=== PATIENT | male | born 1950 | race Caucasian/White ===

== ENCOUNTER → 2020-05-23 10:41 | Outpatient (BNVA) | payer MEDICARE, SELFPAY | PROVIDERS: PCP Internal Medicine; Visit Provider Internal Medicine | DX: J44.9 Chronic obstructive pulmonary disease, unspecified (principal); Z79.899 Other long term (current) drug therapy | CPT/HCPCS: 99212 ==

== ENCOUNTER → 2020-12-27 08:59 | Outpatient (BNVA) | payer MEDICARE, SELFPAY | PROVIDERS: PCP Internal Medicine; Visit Provider Internal Medicine | DX: J44.9 Chronic obstructive pulmonary disease, unspecified (principal); Z79.899 Other long term (current) drug therapy | CPT/HCPCS: 99212 ==

== ENCOUNTER → 2021-06-28 09:39 | Outpatient (BNVA) | payer MEDICARE, SELFPAY | PROVIDERS: PCP Internal Medicine; Visit Provider Internal Medicine | DX: J44.9 Chronic obstructive pulmonary disease, unspecified (principal); J45.909 Unspecified asthma, uncomplicated | CPT/HCPCS: 99212 ==

== ENCOUNTER → 2021-07-27 13:11 | Outpatient (BNVA) | payer MEDICARE, SELFPAY | PROVIDERS: PCP Internal Medicine; Visit Provider Internal Medicine Pulmonary Disease | DX: J45.901 Unspecified asthma with (acute) exacerbation (principal) | CPT/HCPCS: Q3014 ==

== ENCOUNTER → 2021-11-27 09:06 | Outpatient (BNVA) | payer MEDICARE, SELFPAY | PROVIDERS: PCP Internal Medicine; Visit Provider Internal Medicine | DX: J44.9 Chronic obstructive pulmonary disease, unspecified (principal); J30.9 Allergic rhinitis, unspecified; Z79.899 Other long term (current) drug therapy | CPT/HCPCS: 99212 ==

== ENCOUNTER → 2022-05-30 09:57 | Outpatient (BNVA) | payer MEDICARE, SELFPAY | PROVIDERS: PCP Internal Medicine; Visit Provider Internal Medicine | DX: J45.909 Unspecified asthma, uncomplicated (principal); J44.9 Chronic obstructive pulmonary disease, unspecified | CPT/HCPCS: 99212 ==

== ENCOUNTER → 2022-11-26 09:26 | Outpatient (BNVA) | payer MEDICARE, SELFPAY | PROVIDERS: PCP Internal Medicine; Visit Provider Internal Medicine | DX: J44.9 Chronic obstructive pulmonary disease, unspecified (principal); J45.909 Unspecified asthma, uncomplicated; J30.9 Allergic rhinitis, unspecified; Z79.899 Other long term (current) drug therapy | CPT/HCPCS: 94010; 99212 ==

== ENCOUNTER 2023-06-10 10:23 | Outpatient (AMB) | payer MEDICARE, SELFPAY ==
--- NOTE | 2023-06-10 10:37 | A.OFFVIS_ITS ---
Intake Vital Signs 06/10/23 10:39 Height 5 ft 4 in Weight 143 lb 4.807 oz BMI 24.6 BP 130/70 Blood Pressure Location Lt brachial Position Sitting Pulse 56 Pulse Source Pulse Oximeter Pulse Oximetry (%) 97 Oxygen Delivery Method Room Air Intake Visit Reasons: copd Intake Note: Pt reports a little wheezing and is coughing up yellow mucus but says it is typical for him in the winter. He is looking for a prescription refill for the montelukast and albuterol inhaler. [employer] Required: No Allergies peanut [PEANUT] Allergy (Severe, Verified 06/10/23 10:55) ANAPHYLAXIS Medication List - Last Reconciled 06/10/23 by Viviane Abbasi MD albuterol sulfate 90 mcg/actuation 2 puffs inhalation Q4-6H PRN NS amlodipine 5 mg PO DAILY atorvastatin 10 mg PO DAILY cholecalciferol (vitamin D3) 25 mcg PO DAILY hydrocortisone 2.5% topical BID montelukast 10 mg PO BEDTIME omeprazole 40 mg PO DAILY peak flow meter As directed tamsulosin 0.4 mg PO DAILY Wixela Inhub 250-50 mcg/dose (fluticasone propion-salmeterol) 1 ea PO BID NS Do you need a note to return to daycare/school/sports/work: No HPI copd HPI Details CALI IS 73 YEARS OLD GENTLEMAN AND IS HERE AFTER 6 MONTHS FOR FOLLOW- UP. MAIN PROBLEMS INCLUDE CHRONIC ALLERGIC RHINITIS AND CHRONIC OBSTRUCTIVE PULMONARY DISEASE. HE IS DOING VERY WELL ON HIS CURRENT REGIMEN. HE DOES HAVE INTERMITTENT INCREASE IN NASAL CONGESTION AND CHEST CONGESTION BUT HAS HAD NO PNEUMONIA ARE ANY PERSISTENCE OF SYMPTOMS. HE REMAINS PHYSICALLY ACTIVE AND TELLS ME THAT HE ACTUALLY PLAYS PICKLEBALL A FEW TIMES A WEEK. [facility] Medical History (Updated 06/10/23 @ 10:58 by Viviane Abbasi MD) Asthma-COPD overlap syndrome Allergic rhinitis Bronchial asthma COPD (chronic obstructive pulmonary disease) Social History Patient Tobacco Use Status: Never used Tobacco Review of Systems Const All systems reviewed & are unremarkable except as noted in HPI and below Eyes Reports no additional complaints ENT Reports nasal congestion (Mild intermittent) Card Reports no additional complaints Resp Reports as per HPI GI Reports heartburn (Occasional heartburn controlled with med) Reports no additional complaints Musc Reports no additional complaints Skin/Breast Reports system reviewed and no additional complaints, except as documented Neuro Reports no additional complaints Physical Exam Vital Signs: Last Vital Signs Pulse 56 06/10/23 10:39 BP 130/70 06/10/23 10:39 Pulse Ox 97 06/10/23 10:39 Oxygen Delivery Method Room Air 06/10/23 10:39 BMI result Body Mass Index 24.6 Const General: healthy appearing, comfortable, no acute distress, alert and awake Orientation/consciousness: patient oriented x3 HEENT Head: Yes normal to inspection General nose exam: No nasal polyps present and No nasal discharge present Face and sinus: Yes sinuses nontender Mouth: oropharynx normal Throat: Yes posterior oropharynx normal Eyes General: appearance normal, both eyes and all related structures Neck Neck: Yes normal visual inspection, Yes no lymphadenopathy, Yes trachea midline and Yes no JVD Thyroid: Thyroid normal Chest Chest palpation & inspection: normal inspection of the chest, normal palpation of entire chest wall and no tenderness Resp Other: Percussion note resonant, breath sounds are equal and normal on both sides. No wheezes ,Creps or rhonchi are heard . Cardio Palpation: normal PMI Rate: regular rate Rhythm: regular rhythm Heart sounds: no gallops and no murmurs Peripheral pulses: Peripheral pulses 2+ throughout GI Palpation (GI): Soft to palpation, nontender, No hepatosplenomegaly present and no masses Auscultation: normal bowel sounds Back/Spine/Pelvis Thoracic/Lumbar Spine: thoracic and lumbar spine normal to inspection Skin General skin exam: no rashes or lesions noted Neuro General: patient oriented x3 and no focal motor deficits Cranial nerves: Yes CN's II-XII intact bilaterally Extrem General: Yes normal to inspection, Yes no clubbing, cyanosis or edema and Yes no calf tenderness Psych Appearance: grossly normal and well kempt Speech and movement: Normal speech and movement present Assessment & Plan Assessment & Plan (1) Asthma-COPD overlap syndrome: Comment: HE HAS LIFELONG HISTORY OF BRONCHIAL ASTHMA WHICH HAS NOW CHANGED INTO ASTHMA COPD OVERLAP SYNDROME. HE IS REMAINING VERY STABLE ON HIS CURRENT REGIMEN. Code(s): J44.89 - Other specified chronic obstructive pulmonary disease Plan: WIXELA 250-51 INHALATION B.I.D.. MONTELUKAST 10 MG DAILY. ALBUTEROL HFA 2 PUFFS Q 6 HOURS ONLY P.R.N. (2) Allergic rhinitis: Comment: Well controlled at this time [place]: Montelukast 10 mg daily Claritin 10 mg 1 a day only p.r.n. Code(s): J30.9 - Allergic rhinitis, unspecified Plan: ABOVE Medications: Changed From montelukast 10 mg PO BEDTIME 90 tabs 1RF J30.9 - Allergic rhinitis, unspecified To montelukast 10 mg PO BEDTIME 90 tabs 3RF ASTHMA/ALLERGIC RHINITIS 90 days J30.9 - Allergic rhinitis, unspecified Refilled albuterol sulfate 90 mcg/actuation 2 puffs inhalation Q4-6H PRN 1 ea 3RF shor tness of breath or wheezing NS Coding Level of Care Code Est Pt Level 3 (84656) Diagnoses Asthma-COPD overlap syndrome J44.89 Allergic rhinitis J30.9
[2023-06-10 10:39] VITALS: BP 130/70; PULSE 56; O2SAT 97; BMI 24.6
== END 2023-06-10 11:02 | disposition home or self-care (01) ==
PROVIDERS: PCP Internal Medicine; Visit Provider Internal Medicine
DX: J44.89 Other specified chronic obstructive pulmonary disease (principal); J30.9 Allergic rhinitis, unspecified
CPT/HCPCS: 99213

== ENCOUNTER → 2023-06-10 10:23 | Outpatient (BNVA) | payer MEDICARE, SELFPAY | PROVIDERS: PCP Internal Medicine; Visit Provider Internal Medicine | DX: J44.89 Other specified chronic obstructive pulmonary disease (principal); J30.9 Allergic rhinitis, unspecified | CPT/HCPCS: 99212 ==

== ENCOUNTER 2023-12-09 09:21 | Outpatient (AMB) | payer MEDICARE, SELFPAY ==
--- NOTE | 2023-12-09 09:24 | A.OFFVIS_ITS ---
Vital Signs 12/09/23 09:25 Weight 144 lb 6.444 oz BP 130/70 Blood Pressure Location Lt brachial Position Sitting Pulse 63 Pulse Source Pulse Oximeter Pulse Oximetry (%) 96 Oxygen Delivery Method Room Air Intake Visit Reasons: copd Allergies peanut [PEANUT] Allergy (Severe, Verified 12/09/23 09:31) ANAPHYLAXIS Medication List - Last Reconciled 12/09/23 by Viviane Abbasi MD albuterol sulfate 90 mcg/actuation 2 puffs inhalation Q4-6H PRN NS amlodipine 5 mg PO DAILY atorvastatin 10 mg PO DAILY cholecalciferol (vitamin D3) 25 mcg PO DAILY famotidine 40 mg PO DAILY hydrocortisone 2.5% topical BID montelukast 10 mg PO BEDTIME 90 days omeprazole 40 mg PO DAILY peak flow meter As directed tamsulosin 0.4 mg PO DAILY Wixela Inhub 250-50 mcg/dose (fluticasone propion-salmeterol) 1 ea PO BID NS Do you need a note to return to daycare/school/sports/work: No HPI HPI copd: Details: Sahil is now 73 comes after 6 months for his routine follow-up. His breathing status has remained very stable though he gets short of breath on moderately heavy physical work. He has had no bouts of nasal allergy, or any respiratory infection. Sahil stays very active, plays pickleball regularly. Taking his meds regularly. [facility] Medical History Asthma-COPD overlap syndrome Allergic rhinitis Bronchial asthma COPD (chronic obstructive pulmonary disease) Social History Patient Tobacco Use Status: Never used Tobacco Review of Systems Const All systems reviewed & are unremarkable except as noted in HPI and below Eyes Reports no additional complaints ENT Reports nasal congestion (Mild intermittent) Card Reports no additional complaints Resp Reports as per HPI GI Reports heartburn (Occasional heartburn controlled with med) Reports no additional complaints Musc Reports no additional complaints Skin/Breast Reports system reviewed and no additional complaints, except as documented Neuro Reports no additional complaints Physical Exam Vital Signs: Last Vital Signs Pulse 63 12/09/23 09:25 BP 130/70 12/09/23 09:25 Pulse Ox 96 12/09/23 09:25 Oxygen Delivery Method Room Air 12/09/23 09:25 Const General: healthy appearing, comfortable, no acute distress, alert and awake Orientation/consciousness: patient oriented x3 HEENT Head: Yes normal to inspection General nose exam: No nasal polyps present and No nasal discharge present Face and sinus: Yes sinuses nontender Mouth: oropharynx normal Throat: Yes posterior oropharynx normal Eyes General: appearance normal, both eyes and all related structures Neck Neck: Yes normal visual inspection, Yes no lymphadenopathy, Yes trachea midline and Yes no JVD Thyroid: Thyroid normal Chest Chest palpation & inspection: normal inspection of the chest, normal palpation of entire chest wall and no tenderness Resp Other: Percussion note resonant, breath sounds are equal and normal on both sides. No wheezes ,Creps or rhonchi are heard . Cardio Palpation: normal PMI Rate: regular rate Rhythm: regular rhythm Heart sounds: no gallops and no murmurs Peripheral pulses: Peripheral pulses 2+ throughout GI Palpation (GI): Soft to palpation, nontender, No hepatosplenomegaly present and no masses Auscultation: normal bowel sounds Back/Spine/Pelvis Thoracic/Lumbar Spine: thoracic and lumbar spine normal to inspection Skin General skin exam: no rashes or lesions noted Neuro General: patient oriented x3 and no focal motor deficits Cranial nerves: Yes CN's II-XII intact bilaterally Extrem General: Yes normal to inspection, Yes no clubbing, cyanosis or edema and Yes no calf tenderness Psych Appearance: grossly normal and well kempt Speech and movement: Normal speech and movement present Assessment & Plan Assessment & Plan (1) Asthma-COPD overlap syndrome: Comment: HE HAS LIFELONG HISTORY OF BRONCHIAL ASTHMA WHICH HAS NOW CHANGED INTO ASTHMA / COPD OVERLAP SYNDROME. HE IS REMAINING VERY STABLE ON HIS CURRENT REGIMEN. Code(s): J44.89 - Other specified chronic obstructive pulmonary disease Category: Medical Plan: Continue Wixela 250-51 inhalation b.i.d. and albuterol HFA 2 puffs Q 4-6 hours only p.r.n. (2) Allergic rhinitis: Comment: Well controlled at this time. He has had no acute exacerbation. Code(s): J30.9 - Allergic rhinitis, unspecified Category: Medical Plan: [place]: Montelukast 10 mg daily Claritin 10 mg 1 a day only p.r.n. Coding Level of Care Code Est Pt Level 3 (00352) Diagnoses Asthma-COPD overlap syndrome J44.89 Allergic rhinitis J30.9
[2023-12-09 09:25] VITALS: BP 130/70; PULSE 63; O2SAT 96
== END 2023-12-09 09:40 | disposition home or self-care (01) ==
PROVIDERS: PCP Internal Medicine; Visit Provider Internal Medicine
DX: J44.89 Other specified chronic obstructive pulmonary disease (principal); J30.9 Allergic rhinitis, unspecified
CPT/HCPCS: 99213

== ENCOUNTER → 2023-12-09 09:21 | Outpatient (BNVA) | payer MEDICARE, SELFPAY | PROVIDERS: PCP Internal Medicine; Visit Provider Internal Medicine | DX: J44.89 Other specified chronic obstructive pulmonary disease (principal); J30.9 Allergic rhinitis, unspecified; Z79.899 Other long term (current) drug therapy | CPT/HCPCS: 99212 ==

== ENCOUNTER 2024-06-14 09:16 | Outpatient (AMB) | payer MEDICARE, SELFPAY ==
[2024-06-14 09:21] VITALS: BP 112/70; PULSE 60; O2SAT 96; BMI 25.5
--- NOTE | 2024-06-14 09:21 | A.OFFVIS_ITS ---
Vital Signs 06/14/24 09:21 Height 5 ft 4 in Weight 148 lb 12.992 oz BMI 25.5 BP 112/70 Blood Pressure Location Lt brachial Position Sitting Pulse 60 Pulse Source Pulse Oximeter Pulse Oximetry (%) 96 Oxygen Delivery Method Room Air Intake Visit Reasons: COPD Intake Note: pt is here for follow up had URI after xmas and he has lingering mucous in chest. Pulmonary Function Technician Required: No Allergies peanut [PEANUT] Allergy (Severe, Verified 06/14/24 09:33) ANAPHYLAXIS Medication List - Last Reconciled 06/14/24 by Viviane Abbasi MD albuterol sulfate 90 mcg/actuation 2 puffs inhalation Q4-6H PRN NS amlodipine 5 mg PO DAILY atorvastatin 10 mg PO DAILY cholecalciferol (vitamin D3) 25 mcg PO DAILY famotidine 40 mg PO DAILY hydrocortisone 2.5% topical BID losartan 25 mg PO DAILY montelukast 10 mg PO BEDTIME 90 days omeprazole 40 mg PO DAILY peak flow meter As directed prednisone 20 mg PO BID 5 days tamsulosin 0.4 mg PO DAILY Wixela Inhub 250-50 mcg/dose (fluticasone propion-salmeterol) 1 ea PO BID NS Do you need a note to return to daycare/school/sports/work: No HPI HPI COPD: Details: Sahil has been fairly stable, overall except for intermittent bouts of increased chest congestion and cough. He has used a short course of prednisone once during the last 6 months, otherwise he is doing well on his ongoing maintenance regimen. He remains very active. Denies any shortness of breath on exertion. [facility] Medical History Asthma-COPD overlap syndrome Allergic rhinitis Bronchial asthma COPD (chronic obstructive pulmonary disease) Social History Patient Tobacco Use Status: Never used Tobacco Review of Systems Const All systems reviewed & are unremarkable except as noted in HPI and below Eyes Reports no additional complaints ENT Reports nasal congestion (Mild intermittent) Card Reports no additional complaints Resp Reports as per HPI GI Reports heartburn (Occasional heartburn controlled with med) Reports no additional complaints Musc Reports no additional complaints Skin/Breast Reports system reviewed and no additional complaints, except as documented Neuro Reports no additional complaints Physical Exam Vital Signs: Last Vital Signs Pulse 60 01/13/25 09:21 BP 112/70 06/14/24 09:21 Pulse Ox 96 06/14/24 09:21 Oxygen Delivery Method Room Air 06/14/24 09:21 BMI result Body Mass Index 25.5 Const General: healthy appearing, comfortable, no acute distress, alert and awake Orientation/consciousness: patient oriented x3 HEENT Head: Yes normal to inspection General nose exam: No nasal polyps present, No nasal discharge present and Other nasal findings present (Mild nasal congestion) Face and sinus: Yes sinuses nontender Mouth: oropharynx normal Throat: Yes posterior oropharynx normal Eyes General: appearance normal, both eyes and all related structures Neck Neck: Yes normal visual inspection, Yes no lymphadenopathy, Yes trachea midline and Yes no JVD Thyroid: Thyroid normal Chest Chest palpation & inspection: normal inspection of the chest, normal palpation of entire chest wall and no tenderness Resp Other: Percussion note resonant, breath sounds are equal and normal on both sides. No wheezes ,Creps or rhonchi are heard . Cardio Palpation: normal PMI Rate: regular rate Rhythm: regular rhythm Heart sounds: no gallops and no murmurs Peripheral pulses: Peripheral pulses 2+ throughout GI Palpation (GI): Soft to palpation, nontender, No hepatosplenomegaly present and no masses Auscultation: normal bowel sounds Back/Spine/Pelvis Thoracic/Lumbar Spine: thoracic and lumbar spine normal to inspection Skin General skin exam: no rashes or lesions noted Neuro General: patient oriented x3 and no focal motor deficits Cranial nerves: Yes CN's II-XII intact bilaterally Extrem General: Yes normal to inspection, Yes no clubbing, cyanosis or edema and Yes no calf tenderness Psych Appearance: grossly normal and well kempt Speech and movement: Normal speech and movement present Assessment & Plan Assessment & Plan (1) Asthma-COPD overlap syndrome: Comment: HE HAS LIFELONG HISTORY OF BRONCHIAL ASTHMA WHICH HAS NOW CHANGED INTO ASTHMA / COPD OVERLAP SYNDROME. HE IS REMAINING VERY STABLE ON HIS CURRENT REGIMEN. HAS INTERMITTENT BOUTS OF INCREASED NASAL CONGESTION WELL CHEST CONGESTION, WHICH MAY BE DUE TO CHANGES IN THE WEATHER. Code(s): J44.89 - Other specified chronic obstructive pulmonary disease Category: Medical Plan: CONTINUE MONTELUKAST 10 MG DAILY WIXELA 250-50 1 INHALATION. B.I.D. I TOLD HIM THAT HE CAN DOUBLE UP ON WIXELA USING 2 INHALATIONS B.I.D. FOR A FEW DAYS IF HE GETS ANY ACUTE EXACERBATION. ALTERNATELY IF THE ACUTE EXACERBATION IS WORSE THEN HE SHOULD BE TREATED WITH A SHORT COURSE OF PREDNISONE 20 MG B.I.D. FOR 5 DAYS. USE ALBUTEROL HFA 2 PUFFS Q 6 HOURS P.R.N. (2) Allergic rhinitis: Comment: Well controlled at this time. He has had no acute exacerbation. Code(s): J30.9 - Allergic rhinitis, unspecified Category: Medical Plan: CONTINUE MONTELUKAST 10 MG DAILY Medications: New prednisone 20 mg PO BID 5 days 10 tabs 0RF COPD EXCERBATION Coding Level of Care Code Est Pt Level 3 (02887) Diagnoses Asthma-COPD overlap syndrome J44.89 Allergic rhinitis J30.9
== END 2024-06-14 09:34 | disposition home or self-care (01) ==
PROVIDERS: PCP Internal Medicine; Visit Provider Internal Medicine
DX: J44.89 Other specified chronic obstructive pulmonary disease (principal); J30.9 Allergic rhinitis, unspecified
CPT/HCPCS: 99213

== ENCOUNTER → 2024-06-14 09:16 | Outpatient (BNVA) | payer MEDICARE, SELFPAY | PROVIDERS: PCP Internal Medicine; Visit Provider Internal Medicine | DX: J44.89 Other specified chronic obstructive pulmonary disease (principal); J30.9 Allergic rhinitis, unspecified | CPT/HCPCS: 99212 ==

== ENCOUNTER 2024-12-13 09:33 | Outpatient (AMB) | payer MEDICARE, SELFPAY ==
--- NOTE | 2024-12-13 09:37 | A.OFFVIS_ITS ---
Vital Signs 12/13/24 09:38 Height 5 ft 4 in Weight 144 lb 6.444 oz BMI 24.8 BP 120/80 Blood Pressure Location Lt brachial Position Sitting Respiration 16 Pulse 48 L Pulse Source Pulse Oximeter Pulse Oximetry (%) 100 Oxygen Delivery Method Room Air Intake Visit Reasons: COPD Architectural Examiner Required: No Accompanied by: Self / Same As Patient Allergies peanut (PEANUT) Allergy (Severe, Verified 12/13/24 09:47) ANAPHYLAXIS Medication List - Last Reconciled 12/13/24 by Viviane Abbasi MD albuterol sulfate 90 mcg/actuation 2 puffs inhalation Q4-6H PRN NS amlodipine 5 mg PO DAILY atorvastatin 10 mg PO DAILY cholecalciferol (vitamin D3) 25 mcg PO DAILY famotidine 40 mg PO DAILY hydrocortisone 2.5% topical BID losartan 25 mg PO DAILY montelukast 10 mg PO BEDTIME 90 days omeprazole 40 mg PO DAILY peak flow meter As directed prednisone 20 mg PO BID 5 days prednisone 20 mg PO BID 5 days tamsulosin 0.4 mg PO DAILY Wixela Inhub 250-50 mcg/dose (fluticasone propion-salmeterol) 1 inh PO BID NS Do you need a note to return to daycare/school/sports/work: No HPI HPI COPD: Details: 74 years old gentleman with longstanding history of bronchial asthma/COPD and allergic rhinitis, is here for his 6 months follow-up. He has remained free of any acute exacerbations and claims to be very stable. He can walk around and do his usual day-to-day activities without shortness of breath. Cough and mild nasal congestion off and on remain mostly well controlled. [facility] Medical History Asthma-COPD overlap syndrome Allergic rhinitis Bronchial asthma COPD (chronic obstructive pulmonary disease) Social History Patient Tobacco Use Status: Never used Tobacco Review of Systems Const All systems reviewed & are unremarkable except as noted in HPI and below Eyes Reports no additional complaints ENT Reports nasal congestion (Mild intermittent) Card Reports no additional complaints Resp Reports as per HPI GI Reports heartburn (Occasional heartburn controlled with med) Reports no additional complaints Musc Reports no additional complaints Skin/Breast Reports system reviewed and no additional complaints, except as documented Neuro Reports no additional complaints Physical Exam Vital Signs: Last Vital Signs Pulse 48 L 12/13/24 09:38 Resp 16 12/13/24 09:38 BP 120/80 12/13/24 09:38 Pulse Ox 100 12/13/24 09:38 Oxygen Delivery Method Room Air 12/13/24 09:38 BMI result Body Mass Index 24.8 Const General: healthy appearing, comfortable, no acute distress, alert and awake Orientation/consciousness: patient oriented x3 HEENT Head: Yes normal to inspection General nose exam: No nasal polyps present, No nasal discharge present and Other nasal findings present (Mild nasal congestion) Face and sinus: Yes sinuses nontender Mouth: oropharynx normal Throat: Yes posterior oropharynx normal Eyes General: appearance normal, both eyes and all related structures Neck Neck: Yes normal visual inspection, Yes no lymphadenopathy, Yes trachea midline and Yes no JVD Thyroid: Thyroid normal Chest Chest palpation & inspection: normal inspection of the chest, normal palpation of entire chest wall and no tenderness Resp Other: Percussion note resonant, breath sounds are equal and normal on both sides. No wheezes ,Creps or rhonchi are heard . Cardio Palpation: normal PMI Rate: regular rate Rhythm: regular rhythm Heart sounds: no gallops and no murmurs Peripheral pulses: Peripheral pulses 2+ throughout GI Palpation (GI): Soft to palpation, nontender, No hepatosplenomegaly present and no masses Auscultation: normal bowel sounds Back/Spine/Pelvis Thoracic/Lumbar Spine: thoracic and lumbar spine normal to inspection Skin General skin exam: no rashes or lesions noted Neuro General: patient oriented x3 and no focal motor deficits Cranial nerves: Yes CN's II-XII intact bilaterally Extrem General: Yes normal to inspection, Yes no clubbing, cyanosis or edema and Yes no calf tenderness Psych Appearance: grossly normal and well kempt Speech and movement: Normal speech and movement present Office Procedures Spirometry Testing Spirometry Comments: Spirometry done in the office, Dr. Abbasi has the results results scanned to his chart. [id number]- Spirometry Results Reviewed Results Reviewed: SPIROMETRY 11/26/22 12/13/24 FVC= 85 % 90 % FEV1 = 79 % 86 % FEF 25-75 58 % 76 % ( used Wixela one inh , 2 hrs earlier ) Assessment & Plan Assessment & Plan (1) Asthma-COPD overlap syndrome: Comment: HE HAS LIFELONG HISTORY OF BRONCHIAL ASTHMA WHICH HAS NOW CHANGED INTO ASTHMA / COPD OVERLAP SYNDROME. HE IS REMAINING VERY STABLE ON HIS CURRENT REGIMEN. INTERMITTENT BOUTS OF INCREASED NASAL CONGESTION WELL CHEST CONGESTION, HAVEBEEN MUCH LESS , AND DID NOT HAVE TO TAKE PREDNISONE . Code(s): J44.89 - Other specified chronic obstructive pulmonary disease Category: Medical Plan: CONTINUE TO USE WIXELA 250-51 INHALATION B.I.D. AND MONTELUKAST 10 MG DAILY, ALBUTEROL HFA 2 PUFFS Q 4-6 HOURS ONLY P.R.N.. (2) Allergic rhinitis: Comment: Well controlled at this time. He has had no acute exacerbation. Code(s): J30.9 - Allergic rhinitis, unspecified Category: Medical Plan: CONTINUE MONTELUKAST 10 MG DAILY, USE FLONASE-51 SPRAY IN EACH NOSTRIL DAILY. Orders: Orders AMB Spirometry Testing Today J44.9 - Chronic obstructive pulmonary disease, unspecified Coding Level of Care Code Est Pt Level 3 (87663) Diagnoses Asthma-COPD overlap syndrome J44.89 Allergic rhinitis J30.9 CPT Codes Spirometry - CPT: 12166- Spirometry ([id number])
[2024-12-13 09:38] VITALS: BP 120/80; PULSE 48; RESP 16; O2SAT 100; BMI 24.8
== END 2024-12-13 09:59 | disposition home or self-care (01) ==
LOC: HO.HPS 09:34
PROVIDERS: PCP Internal Medicine; Visit Provider Internal Medicine
DX: J44.89 Other specified chronic obstructive pulmonary disease (principal); J30.9 Allergic rhinitis, unspecified
CPT/HCPCS: 94010; 99213

== ENCOUNTER → 2024-12-13 09:33 | Outpatient (BNVA) | payer MEDICARE, SELFPAY | PROVIDERS: PCP Internal Medicine; Visit Provider Internal Medicine | DX: J44.89 Other specified chronic obstructive pulmonary disease (principal); J30.9 Allergic rhinitis, unspecified | CPT/HCPCS: 94010; 99212 ==